=== PATIENT | female | born 1965 ===

== ENCOUNTER 2017-03-17 02:31 | Emergency (ER) | payer BC, OTHER ==
[2017-03-17] MEDS ORDERED: Adacel (T-DAP) 0.5 ML VIAL ONE (03:14)
[2017-03-17] MEDS ORDERED: Acetaminophen 500 MG TAB ONE (04:08)
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
== END 2017-03-17 04:13 | disposition home or self-care (01) ==
LOC: BURERS 02:31
DX: S01.112A Laceration without foreign body of left eyelid and periocular area, initial encounter (principal); S50.12XA Contusion of left forearm, initial encounter; S60.221A Contusion of right hand, initial encounter; Z23 Encounter for immunization; Y04.0XXA Assault by unarmed brawl or fight, initial encounter
CPT/HCPCS: 12011; 70486; 90471; 90715